=== PATIENT | female | born 1945 | race Caucasian/White ===

== ENCOUNTER 2016-04-29 04:23 | Emergency (ER) | payer OTHER, MEDICARE ==
[~2016-04-29] VITALS: Ht 180.3 cm; Wt 104.6 kg
[~2016-04-29 04:23] MED LIST: ALBUTEROL SULF8.5 GM IH; ASPIRIN EC325 MG PO; DAYPRO600 MG PO; ESTRING1 EACH VG; FLEXERIL10 MG PO; LITE COAT ASPI325 M1 PO; LOPRESSOR25 MG PO; MAGNESIUM250 MG PO; SYNTHROID100 MCG PO; SYNTHROID150 MCG PO; SYNTHROID75 MCG PO; TRAMADOL HCL50 MG PO; VENTOLIN HFA18 GM IH; VITAMIN D2000 UNIT PO; XARELTO20 MG PO; ZINC LOZENGE25 MG PO
[2016-04-29 05:01] LABS: CARBON DIOXIDE (BICARBONATE) 23.7 MEQ/L (20-31); HEMATOCRIT 42.3 % (36.0-46.0); MCH 29.7 PG (29.0-34.0); MCHC 33.3 G/DL (30.0-36.0); MCV 89.2 FL (83-99); MEAN PLAT.VOLUME 10.2 uM^3 (9.5-12.4); PLATELET COUNT 187 K/uL (156-360); RBC DIS.WIDTH-CV 14.4 % (11.8-14.6); RBC DIS.WIDTH-SD 46.1 % (39-53); RED BLOOD COUNT 4.74 M/uL (3.80-5.20)
[2016-04-29 05:10] LABS: CHLORIDE 112 mEq/L (99-109); POTASSIUM 3.7 mEq/L (3.7-5.4); SODIUM 140 mEq/L (136-147)
[2016-04-29 05:11] LABS: GLUCOSE 88 mg/dL (70-99)
[2016-04-29 05:13] LABS: ANION GAP 8 MEQ/L (2-14)
[2016-04-29 05:15] LABS: GFR ESTIMATE (CALCULATED) 52 mL/min/
[2016-04-29 05:16] LABS: UREA NITROGEN (BUN) 31 mg/dL (9-23)
[2016-04-29 05:22] LABS: TROP-I INTERPRETATION NEGATIVE; TROPONIN-I < 0.01 ng/mL (0.0-0.30)
[2016-04-29] MEDS ORDERED: ST. JOSEPH ASPI81 MG PO (05:55)
[2016-04-29] MEDS ORDERED: FLOVENT 11120 INHALA IH (05:56)
[2016-04-29 08:17] VITALS: BP 128/63
== END 2016-04-29 08:18 | disposition left against medical advice (07) ==
LOC: EME 04:23
PROVIDERS: Emergency Medicine
DX: I48.91 Unspecified atrial fibrillation (principal); R07.89 Other chest pain; R00.1 Bradycardia, unspecified; Z87.891 Personal history of nicotine dependence
CPT/HCPCS: 71010; 80048; 82803; 83605; 83880; 84443; 84484; 85027; 87040; 93005; 94640; 99281; 99285